=== PATIENT | female | born 1970 | race Caucasian/White ===

== ENCOUNTER 2017-11-04 12:48 | Inpatient (IN) | payer OTHER ==
[2017-11-04] MEDS ORDERED: LIDOCAINE 5% 35 GM OINT TOP (13:52)
[2017-11-04] MEDS ORDERED: OXYCODONE/ACETAMINOPHEN (5/325) TAB PO (14:00)
[2017-11-04] MEDS ORDERED: ACETAMINOPHEN 325 MG TAB PO (14:00)
[2017-11-04] MEDS ORDERED: ONDANSETRON 4 MG INJ IV (14:00)
[2017-11-04] MEDS ORDERED: MAGNESIUM HYDROXIDE 30ML CUP PO (14:00)
[2017-11-04] MEDS ORDERED: NACL 0.9% 3 ML SYG IV (14:00)
[2017-11-04] MEDS ORDERED: morphine 2 MG INJ IV (14:00)
[2017-11-04] MEDS ORDERED: DOCUSATE SODIUM 100 MG CAP PO (14:00)
[2017-11-04] MEDS: DEXTROSE 5%-0.45% NACL 1,000 ML IV (14:34)
[2017-11-04] MEDS: PIPER-TAZO 3.375 GM IV (PMX) 100 ML IVPB ×3 (14:52→23:17)
[2017-11-05] MEDS: DEXTROSE 5%-0.45% NACL 1,000 ML IV ×2 (03:15→05:31)
[2017-11-05] MEDS: PIPER-TAZO 3.375 GM IV (PMX) 100 ML IVPB (05:28)
[2017-11-05] MEDS: PANTOPRAZOLE (EC) 40 MG TAB PO (05:28)
[2017-11-05 06:15] LABS: HEMATOCRIT 37.2 % (37.0-47.0); HEMOGLOBIN 12.4 g/dl (12.0-16.0); MEAN CORPUSCULAR HGB CONC 33.3 g/dl (32.0-37.0); MEAN CORPUSCULAR VOLUME 86.9 fl (82.0-101.0); PLATELET COUNT 299 10^3/UL (140-415); RED BLOOD COUNT 4.28 10^6/ul (4.20-5.40); RED CELL DISTRIBUTION WIDTH 12.9 % (11.5-14.5)
[2017-11-05 06:15] LABS: WHITE BLOOD COUNT 5.1 10^3/ul (4.8-10.8)
[2017-11-05 06:17] LABS: ADD MAN DIFF? YES; POSITIVE DIFF @See below
[2017-11-05 06:49] LABS: ANION GAP 13 (8-16); BLOOD UREA NITROGEN 8 mg/dl (7-20); CALCIUM 8.5 mg/dl (8.4-10.2); CARBON DIOXIDE 27 mmol/L (21-31); CHLORIDE 108 mmol/L (97-110); CREATININE 0.69 mg/dl (0.44-1.00); GLUCOSE 93 mg/dl (70-220); MAGNESIUM 2.1 mg/dl (1.7-2.5); PHOSPHORUS 4.2 mg/dl (2.5-4.9); POTASSIUM 3.6 mmol/L (3.5-5.1); SODIUM 144 mmol/L (135-144)
[2017-11-05 09:40] LABS: BASOPHILS % (M) 1 % (0-2); EOSINOPHILS % (M) 1 % (0-7); PLATELET ESTIMATE NORMAL; REACTIVE LYMPHOCYTES #M 0.3 10^3/ul (0.0-0.0); REACTIVE LYMPHOCYTES% (M) 7 % (0-0)
[2017-11-05 10:03] LABS: ANISOCYTOSIS 2+ (0-0); BAND NEUTROPHILS #M 0.9 10^3/ul (0.0-0.6); BAND NEUTROPHILS % (M) 18 % (0-4); BURR CELLS 1+ (0-0); LYMPHOCYTES #M 2.1 10^3/ul (0.8-2.9); LYMPHOCYTES % (M) 42 % (15-51); MICROCYTOSIS 2+ (0-0); MONOCYTE #M 0.6 10^3/ul (0.3-0.9); MONOCYTES % (M) 13 % (0-11); POIKILOCYTOSIS 1+ (0-0); POLYCHROMASIA 2+ (0-0); SEG NEUT #M 1.4 10^3/ul (1.6-7.5); SEGMENTED NEUTROPHILS (M) % 27 % (39-77); SMUDGE%M 1 % (0-0)
[2017-11-05] MEDS: CIPROFLOXACIN 400MG/D5W 200 ML IVPB ×2 (13:27→20:05)
[2017-11-05] MEDS: metroNIDAZOLE 500 MG/NS (PMX) 100 ML IVPB ×2 (14:00→21:43)
[2017-11-05] MEDS: SUCRALFATE (100 MG/ML) 10ML CUP PO ×2 (17:00→21:42)
[2017-11-06] MEDS: metroNIDAZOLE 500 MG/NS (PMX) 100 ML IVPB (05:27)
[2017-11-06] MEDS: PANTOPRAZOLE (EC) 40 MG TAB PO (05:27)
[2017-11-06 05:55] LABS: HEMATOCRIT 34.3 % (37.0-47.0); HEMOGLOBIN 11.9 g/dl (12.0-16.0); MEAN CORPUSCULAR HEMOGLOBIN 29.3 pg (29.0-33.0); MEAN CORPUSCULAR HGB CONC 34.7 g/dl (32.0-37.0); MEAN CORPUSCULAR VOLUME 84.5 fl (82.0-101.0); PLATELET COUNT 294 10^3/UL (140-415); RED BLOOD COUNT 4.06 10^6/ul (4.20-5.40); RED CELL DISTRIBUTION WIDTH 12.8 % (11.5-14.5)
[2017-11-06 05:55] LABS: WHITE BLOOD COUNT 5.5 10^3/ul (4.8-10.8)
[2017-11-06 06:23] LABS: ANION GAP 11 (8-16); BLOOD UREA NITROGEN 8 mg/dl (7-20); CALCIUM 8.5 mg/dl (8.4-10.2); CARBON DIOXIDE 26 mmol/L (21-31); CHLORIDE 110 mmol/L (97-110); CREATININE 0.59 mg/dl (0.44-1.00); GLUCOSE 91 mg/dl (70-220); MAGNESIUM 2.1 mg/dl (1.7-2.5); PHOSPHORUS 3.9 mg/dl (2.5-4.9); POTASSIUM 3.4 mmol/L (3.5-5.1); SODIUM 144 mmol/L (135-144)
[2017-11-06 06:33] LABS: ADD MAN DIFF? YES; POSITIVE DIFF @See below
[2017-11-06] MEDS: SUCRALFATE (100 MG/ML) 10ML CUP PO (08:55)
[2017-11-06] MEDS: CIPROFLOXACIN 400MG/D5W 200 ML IVPB (08:56)
[2017-11-06 09:01] LABS: ANISOCYTOSIS 1+ (0-0); BAND NEUTROPHILS #M 0.4 10^3/ul (0.0-0.6); BAND NEUTROPHILS % (M) 8 % (0-4); BASOPHILS % (M) 1 % (0-2); LYMPHOCYTES #M 1.7 10^3/ul (0.8-2.9); LYMPHOCYTES % (M) 31 % (15-51); MICROCYTOSIS 1+ (0-0); MONOCYTE #M 0.4 10^3/ul (0.3-0.9); MONOCYTES % (M) 8 % (0-11); PLATELET ESTIMATE NORMAL; REACTIVE LYMPHOCYTES #M 0.8 10^3/ul (0.0-0.0); REACTIVE LYMPHOCYTES% (M) 15 % (0-0); SEG NEUT #M 2.1 10^3/ul (1.6-7.5); SEGMENTED NEUTROPHILS (M) % 37 % (39-77)
[2017-11-06] MEDS: POTASSIUM CHLORIDE (SR) 20 MEQ TAB PO (10:13)
== END 2017-11-06 11:25 | disposition home or self-care (01) | DRG 446 ==
LOC: MS2 12:48
DX: K81.0 Acute cholecystitis (principal); E86.0 Dehydration; R11.2 Nausea with vomiting, unspecified; R00.0 Tachycardia, unspecified
CPT/HCPCS: 76700; 80048; 83735; 84100; 85025

== ENCOUNTER 2017-11-20 14:16 | Outpatient (CLI) | payer OTHER | END 2017-11-20 15:02 | disposition home or self-care (01) | LOC: DCC 14:16 | DX: K81.0 Acute cholecystitis (principal); R10.9 Unspecified abdominal pain | CPT/HCPCS: G0463 ==

== ENCOUNTER 2017-12-04 14:26 | Outpatient (CLI) | payer OTHER | END 2017-12-04 15:43 | disposition home or self-care (01) | LOC: DCC 14:26 | DX: K27.9 Peptic ulcer, site unspecified, unspecified as acute or chronic, without hemorrhage or perforation (principal); K82.4 Cholesterolosis of gallbladder; R10.9 Unspecified abdominal pain | CPT/HCPCS: G0463 ==